=== PATIENT | female | born 1935 | race Caucasian/White ===

== ENCOUNTER 2016-09-15 09:50 | Observation (INO) | payer MEDICARE, OTHER ==
--- NOTE | 2016-09-15 10:19 | ED PDOC ---
HPI: Chest Pain Time Seen by Provider: 09/15/16 10:07 Chief Complaint (Nursing): Chest Pain History Per: Patient (Cough nonproductive x 4 days. No improvement with cough meds. Mild SOB. No fever. Has also had chest pain ? pleuritic.) Onset/Duration Of Symptoms: Days (4) Current Symptoms Are (Timing): Still Present Severity: Moderate Pain Scale Rating Of: 3 Quality: Sharp Associated Symptoms: Dyspnea Alleviating Factors: None Past Medical History Vital Signs: Last Vital Signs Temp 98.8 F 09/15/16 11:55 Pulse 109 H 09/15/16 10:00 Resp 20 09/15/16 10:00 BP 145/84 09/15/16 10:00 Pulse Ox 97 09/15/16 10:19 - Medical History PMH: CAD, HTN Denies: Chronic Kidney Disease - Surgical History Surgical History: Cholecystectomy, Coronary Stent (as per patient) - Family History Family History: States: Unknown Family Hx - Immunization History Hx Influenza Vaccination: No Hx Pneumococcal Vaccination: No - Home Medications Home Medications: Ambulatory Orders Medication Instructions Recorded Amlodipine Besylate/Benazepril 1 cap PO DAILY 09/15/16 [Lotrel 10-20 mg Capsule] Clopidogrel [Plavix] 75 mg PO DAILY 09/15/16 traMADol [Ultram] 50 mg PO BID 09/15/16 - Allergies Allergies/Adverse Reactions: Allergies Allergy/AdvReac Type Severity Reaction Status Date / Time No Known Allergies Allergy Verified 11/13/14 13:01 Review of Systems ROS Statement: Except As Marked, All Systems Reviewed And Found Negative Constitutional: Negative for: Fever Cardiovascular: Positive for: Chest Pain Respiratory: Positive for: Cough, Shortness of Breath Physical Exam - Reviewed Nursing Documentation Reviewed: Yes Vital Signs Reviewed: Yes - Physical Exam Appears: Positive for: Non-toxic, No Acute Distress Head Exam: Positive for: ATRAUMATIC, NORMAL INSPECTION, NORMOCEPHALIC Skin: Positive for: Normal Color, Warm, DRY Eye Exam: Positive for: EOMI, Normal appearance, PERRL ENT: Positive for: Normal ENT Inspection Neck: Positive for: Normal, Painless ROM Cardiovascular/Chest: Positive for: Regular Rate, Rhythm Respiratory: Positive for: Rhonchi. Negative for: Wheezing, Respiratory Distress Gastrointestinal/Abdominal: Positive for: Normal Exam, Bowel Sounds, Soft Back: Positive for: Normal Inspection Extremity: Positive for: Normal ROM Neurologic/Psych: Positive for: Alert, Oriented - Laboratory Results Result Diagrams: 09/15/16 10:25 09/15/16 10:25 - ECG O2 Sat by Pulse Oximetry: 97 Disposition - Clinical Impression Clinical Impression: Chest pain, Bronchitis - Patient ED Disposition Is Patient to be Admitted: Yes - Disposition Disposition Time: 13:50 Condition: FAIR - Pt Status Changed To: Hospital Disposition Of: Observation - POA Present On Arrival: None
[2016-09-15 10:41] LABS: BASO % 0.4 % (0.0-2.0); EOS # 0.2 K/uL (0.0-0.7); EOS % 1.7 % (0.0-4.0); HEMATOCRIT 42.1 % (34.0-47.0); LYMPH # 1.4 K/uL (1.0-4.3); LYMPH % 16.1 % (20.0-40.0); MEAN CELL VOLUME 77.6 fl (81.0-99.0); MEAN CORPUSCULAR HEMOGLOBIN 24.9 pg (27.0-31.0); MEAN CORPUSCULAR HGB CONC 32.1 g/dL (33.0-37.0); MEAN PLATELET VOLUME 10.1 fl (7.2-11.7); MONO # 0.9 K/uL (0.0-0.8); MONO % 10.5 % (0.0-10.0); NEUT # 6.3 K/uL (1.8-7.0); NEUT % 71.3 % (50.0-75.0); NRBC % 0.1 % (0.0-0.0); RED CELL DISTRIBUTION WIDTH 15.6 % (11.5-14.5); WHITE BLOOD COUNT 8.9 K/uL (4.8-10.8)
[2016-09-15 10:44] LABS: VENOUS BLOOD GAS BASE EXCESS -0.6 mmol/L (0.0-2.0); VENOUS BLOOD GAS PCO2 35 mmHg (40-60); VENOUS BLOOD PH 7.43 (7.32-7.43)
[2016-09-15] MEDS ORDERED: Sodium Chloride 0.9% 1,000 ML IV STA (10:46)
[2016-09-15] MEDS ORDERED: Vancomycin 1 g Inj ONE (10:51)
[2016-09-15] MEDS ORDERED: Piperacillin/Tazobact 3.375 gm Inj IVPB ONE (10:51)
[2016-09-15 10:53] LABS: ALKALINE PHOSPHATASE 100 U/L (38-126); ALT/SGPT 23 U/L (9-52); AST/SGOT 25 U/L (14-36); BILIRUBIN,TOTAL 0.9 mg/dl (0.2-1.3); BLOOD UREA NITROGEN 13 mg/dl (7-17); CALCIUM 10.1 mg/dL (8.4-10.2); CARBON DIOXIDE 20 mmol/L (22-30); CHLORIDE 110 mmol/L (98-107); GFR AFRICAN-AMERICAN > 60; GLUCOSE,RANDOM 133 mg/dL (65-105); POTASSIUM 3.5 MMOL/L (3.6-5.0); SODIUM 149 mmol/l (132-148); TOTAL PROTEIN 7.5 G/DL (6.3-8.2)
[2016-09-15] MEDS ORDERED: Piperacillin/Tazobact 3.375 GM in Sodium Chloride 0.9% 100 ML IVPB STA (10:53)
--- NOTE | 2016-09-15 11:25 | RAD ---
HISTORY: Cough. Portable study 10:28. COMPARISON: 10/02/2012. FINDINGS: LUNGS: No active pulmonary disease. PLEURA: No significant pleural effusion identified, no pneumothorax apparent. CARDIOVASCULAR: No radiographic findings to suggest acute or significant cardiovascular disease. OSSEOUS STRUCTURES: No significant abnormalities. VISUALIZED UPPER ABDOMEN: Normal. OTHER FINDINGS: None. IMPRESSION: No active disease. No significant interval change compared to the prior examination(s).
[2016-09-15 13:41] LABS: VENOUS BLOOD GAS BASE EXCESS 0.8 mmol/L (0.0-2.0); VENOUS BLOOD GAS PCO2 34 mmHg (40-60); VENOUS BLOOD PH 7.46 (7.32-7.43)
[2016-09-15] MEDS ORDERED: BENAZEPRIL PO SCH (14:30)
[2016-09-15] MEDS ORDERED: AMLODIPINE BESYLATE PO SCH (14:30)
--- NOTE | 2016-09-15 15:34 | CP.PCM.HP ---
History of Present Illness - History of Present Illness History of Present Illness: pt admitted for cough-non productive and pleuritic cp x 4 days. no f/c, n/v/d. 1st trop and cxr negative. pt ahs ho cad-cardio, tab daughter aware and this provider spoke w/ her Present on Admission - Present on Admission Any Indicators Present on Admission: No Review of Systems - Cardiovascular Cardiovascular: As Per HPI, Chest Pain - Respiratory Respiratory: As Per HPI, Cough, Chest Congestion Past Patient History - Infectious Disease Hx of Infectious Diseases: None - Past Medical History & Family History Past Medical History?: Yes - Past Social History Smoking Status: Never Smoked - CARDIAC Hx Cardiac Disorders: Yes (HTN, AR) - PULMONARY Hx Respiratory Disorders: No - NEUROLOGICAL Hx Neurological Disorder: No - HEENT Hx HEENT Problems: No - RENAL Hx Chronic Kidney Disease: No - ENDOCRINE/METABOLIC Hx Endocrine Disorders: No - HEMATOLOGICAL/ONCOLOGICAL Hx Blood Disorders: No - INTEGUMENTARY Hx Dermatological Problems: No - MUSCULOSKELETAL/RHEUMATOLOGICAL Hx Musculoskeletal Disorders: Yes Hx Back Pain: Yes (And left leg pain) Hx Falls: No - GASTROINTESTINAL Hx Gastrointestinal Disorders: No - GENITOURINARY/GYNECOLOGICAL Hx Genitourinary Disorders: No - PSYCHIATRIC Hx Psychophysiologic Disorder: No Hx Substance Use: No - SURGICAL HISTORY Hx Cholecystectomy: Yes Hx Coronary Stent: Yes (as per patient) - ANESTHESIA Hx Anesthesia: Yes Hx Anesthesia Reactions: No Hx Malignant Hyperthermia: No Meds Allergies/Adverse Reactions: Allergies Allergy/AdvReac Type Severity Reaction Status Date / Time No Known Allergies Allergy Verified 11/13/14 13:01 Physical Exam - Constitutional Appears: Well, Non-toxic, No Acute Distress - Head Exam Head Exam: ATRAUMATIC, NORMAL INSPECTION, NORMOCEPHALIC - Eye Exam Eye Exam: EOMI, Normal appearance, PERRL Pupil Exam: NORMAL ACCOMODATION, PERRL - ENT Exam ENT Exam: Mucous Membranes Moist, Normal Exam - Neck Exam Neck exam: Positive for: Normal Inspection - Respiratory Exam Respiratory Exam: Clear to Auscultation Bilateral, NORMAL BREATHING PATTERN - Cardiovascular Exam Cardiovascular Exam: REGULAR RHYTHM, RRR, +S1, +S2 - GI/Abdominal Exam GI & Abdominal Exam: Normal Bowel Sounds, Soft. absent: Tenderness - Extremities Exam Extremities exam: Positive for: full ROM, normal capillary refill, normal inspection, pedal pulses present - Back Exam Back exam: NORMAL INSPECTION - Neurological Exam Neurological exam: Alert, CN II-XII Intact, Normal Gait, Oriented x3, Reflexes Normal - Psychiatric Exam Psychiatric exam: Normal Affect, Normal Mood - Skin Skin Exam: Dry, Intact, Normal Color, Warm Results - Vital Signs Recent Vital Signs: Last Vital Signs Temp 98.2 F 09/15/16 14:27 Pulse 95 H 09/15/16 14:27 Resp 20 09/15/16 15:27 BP 116/70 09/15/16 14:27 Pulse Ox 99 09/15/16 14:27 - Labs Result Diagrams: 09/15/16 10:25 09/15/16 10:25 Assessment & Plan (1) Bronchitis Assessment and Plan: rocephin/zithromax phenergen (got vanco/zosyn in er) ivf Status: Acute (2) Chest pain Assessment and Plan: trops x 3 cardio tele obs Status: Acute (3) DVT prophylaxis Assessment and Plan: scd nad aehose lovenox if admitted over 24h Status: Acute Decision To Admit - Pt Status Changed To: Hospital Disposition Of: Observation - . Bed Request Type: Telemetry Admitting Physician: Moraima Meade
[2016-09-15] MEDS: Promethazine DM 6.25 mg-15 mg/5 ml Syrup PO PRN (17:09)
[2016-09-16 04:51] VITALS: PULSE 76
[2016-09-16 07:24] LABS: BASO % 0.6 % (0.0-2.0); EOS # 0.2 K/uL (0.0-0.7); EOS % 2.6 % (0.0-4.0); HEMATOCRIT 37.4 % (34.0-47.0); LYMPH # 1.6 K/uL (1.0-4.3); LYMPH % 20.4 % (20.0-40.0); MEAN CELL VOLUME 77.5 fl (81.0-99.0); MEAN CORPUSCULAR HGB CONC 32.2 g/dL (33.0-37.0); MONO % 12.4 % (0.0-10.0); NEUT # 5.1 K/uL (1.8-7.0); NRBC % 0.1 % (0.0-0.0); RED CELL DISTRIBUTION WIDTH 15.5 % (11.5-14.5)
[2016-09-16 08:01] LABS: ALKALINE PHOSPHATASE 73 U/L (38-126); ALT/SGPT 25 U/L (9-52); AST/SGOT 16 U/L (14-36); BILIRUBIN,TOTAL 0.7 mg/dl (0.2-1.3); BLOOD UREA NITROGEN 14 mg/dl (7-17); CALCIUM 9.6 mg/dL (8.4-10.2); CARBON DIOXIDE 24 mmol/L (22-30); CHLORIDE 111 mmol/L (98-107); GFR AFRICAN-AMERICAN > 60; GLUCOSE,RANDOM 89 mg/dL (65-105); POTASSIUM 3.9 MMOL/L (3.6-5.0); SODIUM 147 mmol/l (132-148); TOTAL PROTEIN 6.3 G/DL (6.3-8.2)
--- NOTE | 2016-09-16 08:17 | CP.PCM.DIS ---
Provider - Provider Date of Admission: 09/15/16 13:49 Attending physician: Moraima Meade MD Time Spent in preparation of Discharge (in minutes): 15 Diagnosis - Discharge Diagnosis (1) Bronchitis Status: Acute (2) Chest pain Status: Acute (3) DVT prophylaxis Status: Acute Hospital Course - Lab Results Lab Results: Most Recent Lab Values WBC 8.0 K/uL (4.8-10.8) 09/16/16 05:30 RBC 4.83 Mil/uL (3.80-5.20) 09/16/16 05:30 Hgb 12.1 g/dL (12.0-16.0) 09/16/16 05:30 Hct 37.4 % (34.0-47.0) 09/16/16 05:30 MCV 77.5 fl (81.0-99.0) L 09/16/16 05:30 MCH 25.0 pg (27.0-31.0) L 09/16/16 05:30 MCHC 32.2 g/dL (33.0-37.0) L 09/16/16 05:30 RDW 15.5 % (11.5-14.5) H 09/16/16 05:30 Plt Count 157 K/uL (130-400) 09/16/16 05:30 MPV 10.0 fl (7.2-11.7) 09/16/16 05:30 Neut % (Auto) 64.0 % (50.0-75.0) 09/16/16 05:30 Lymph % (Auto) 20.4 % (20.0-40.0) 09/16/16 05:30 Hancock % (Auto) 12.4 % (0.0-10.0) H 09/16/16 05:30 Eos % (Auto) 2.6 % (0.0-4.0) 09/16/16 05:30 Baso % (Auto) 0.6 % (0.0-2.0) 09/16/16 05:30 Neut # 5.1 K/uL (1.8-7.0) 09/16/16 05:30 Lymph # 1.6 K/uL (1.0-4.3) 09/16/16 05:30 Hancock # 1.0 K/uL (0.0-0.8) H 09/16/16 05:30 Eos # 0.2 K/uL (0.0-0.7) 09/16/16 05:30 Baso # 0.0 K/uL (0.0-0.2) 09/16/16 05:30 pO2 33 mm/Hg (30-55) 09/15/16 13:37 VBG pH 7.46 (7.32-7.43) H 09/15/16 13:37 VBG pCO2 34 mmHg (40-60) L 09/15/16 13:37 VBG HCO3 24.8 mmol/L 09/15/16 13:37 VBG Total CO2 25.2 mmol/L (22-28) 09/15/16 13:37 VBG O2 Sat (Calc) 69.8 % (40-65) H 09/15/16 13:37 VBG Base Excess 0.8 mmol/L (0.0-2.0) 09/15/16 13:37 VBG Potassium 3.3 mmol/L (3.6-5.2) L 09/15/16 13:37 A-a O2 Difference 74.0 mm/Hg 09/15/16 13:37 Sodium 140.0 mmol/L (132-148) 09/15/16 13:37 Chloride 114.0 mmol/L (98-107) H 09/15/16 13:37 Glucose 89 mg/dL (65-105) 09/15/16 13:37 Lactate 1.6 mmol/L (0.7-2.1) 09/15/16 13:37 FiO2 21.0 % 09/15/16 13:37 Crit Value Called To John medina 09/15/16 13:37 Crit Value Called By 15 09/15/16 13:37 Crit Value Read Back Y 09/15/16 13:37 Blood Gas Notified Time 1340 09/15/16 13:37 Sodium 147 mmol/l (132-148) 09/16/16 05:30 Potassium 3.9 MMOL/L (3.6-5.0) 09/16/16 05:30 Chloride 111 mmol/L (98-107) H 09/16/16 05:30 Carbon Dioxide 24 mmol/L (22-30) 09/16/16 05:30 Anion Gap 16 (10-20) 09/16/16 05:30 BUN 14 mg/dl (7-17) 09/16/16 05:30 Creatinine 0.7 mg/dL (0.7-1.2) 09/16/16 05:30 Est GFR ( Amer) > 60 09/16/16 05:30 Est GFR (Non-Af Amer) > 60 09/16/16 05:30 Random Glucose 89 mg/dL (65-105) 09/16/16 05:30 Calcium 9.6 mg/dL (8.4-10.2) 09/16/16 05:30 Total Bilirubin 0.7 mg/dl (0.2-1.3) 09/16/16 05:30 AST 16 U/L (14-36) 09/16/16 05:30 ALT 25 U/L (9-52) 09/16/16 05:30 Alkaline Phosphatase 73 U/L (38-126) 09/16/16 05:30 Troponin I < 0.0120 ng/mL (0.00-0.120) 09/16/16 05:30 Total Protein 6.3 G/DL (6.3-8.2) 09/16/16 05:30 Albumin 3.1 g/dL (3.5-5.0) L 09/16/16 05:30 Globulin 3.2 gm/dL (2.2-3.9) 09/16/16 05:30 Albumin/Globulin Ratio 1.0 (1.0-2.1) 09/16/16 05:30 Venous Blood Potassium 3.3 mmol/L (3.6-5.2) L 09/15/16 13:37 Discharge Exam - Head Exam Head Exam: ATRAUMATIC, NORMAL INSPECTION, NORMOCEPHALIC Discharge Plan - Discharge Medications Prescriptions: Promethazine DM [Phenergan DM Syrup] 5 ml PO Q6H PRN #250 ml PRN Reason: Cough Azithromycin [Zithromax] 250 mg PO DAILY #4 tab - Follow Up Plan Condition: FAIR Disposition: HOME/ ROUTINE Instructions: Acute Bronchitis (GEN) Additional Instructions: spoke w/ daughter. final dx-bronchitits, meds per med rec, f/u rmg 1-2 days, iv infiltration care, rted prn, will f/u in office. Referrals: Mehrdad Encinas MD [Staff Provider] - Tor Smith DNP, [employer] [Advanced Practice Nurse] -
[2016-09-16 08:40] VITALS: BP 115/72; RESP 18; TEMP 97.6; O2SAT 94
[2016-09-16] MEDS: Promethazine DM 6.25 mg-15 mg/5 ml Syrup PO PRN (09:19)
[2016-09-16] MEDS: Azithromycin 500 MG in Sodium Chloride 0.9% 250 ML IVPB SCH ×2 (09:20→13:39)
--- NOTE | 2016-09-16 09:36 | CARD ---
APPROVED REPORT EKG Measurement Heart [id number] ID [id number] <Conclusion> Sinus tachycardia Left axis deviation Right bundle branch block Minimal voltage criteria for LVH, may be normal variant Possible Lateral infarct, age undetermined Inferior infarct, age undetermined Abnormal ECG
[2016-09-16] MEDS ORDERED: Amoxicillin-Clav 875-125 mg Tab PO SCH (11:00)
--- NOTE | 2016-09-16 11:05 | CP.PCM.PN ---
Subjective - Date & Time of Evaluation Date of Evaluation: 09/16/16 Time of Evaluation: 11:04 - Subjective Subjective: pt comfortable in bed. no distress/complaints. no cp, minimal cough. no f/c, n/v /d. trops neative. cardio-lisy saw ekg and states will see pt as outpt in 1-2 days. bw wnl. vss Objective - Vital Signs/Intake and Output Vital Signs (last 24 hours): Temp Pulse Resp BP Pulse Ox 97.6 F 76 18 115/72 94 L 09/16/16 08:00 09/16/16 09:20 09/16/16 08:00 09/16/16 09:20 09/16/16 08:00 - Medications Medications: Current Medications Amlodipine Besylate (Norvasc) 10 mg PO DAILY [facility] Last Admin: 09/16/16 09:20 Dose: Not Given Amoxicillin/Clavulanate Potassium (Augmentin 875 Mg-125 Mg Tab) 1 tab PO Q12 [facility] Clopidogrel Bisulfate (Plavix) 75 mg PO DAILY [facility] Last Admin: 09/16/16 09:19 Dose: 75 mg Docusate Sodium (Colace) 100 mg PO BID [facility] Last Admin: 09/16/16 09:19 Dose: 100 mg Azithromycin 500 mg/ Sodium (Chloride) 250 mls @ 250 mls/hr IVPB DAILY [facility] Last Admin: 09/16/16 09:20 Dose: 250 mls/hr Ceftriaxone Sodium 1 gm/ (Sodium Chloride) 100 mls @ 100 mls/hr IVPB DAILY [facility] Last Admin: 09/16/16 09:21 Dose: 100 mls/hr Lisinopril (Zestril) 20 mg PO DAILY [facility] Last Admin: 09/16/16 09:19 Dose: 20 mg Promethazine HCl/Dextromethorphan (Phenergan Dm Syrup) 5 ml PO Q6 PRN PRN Reason: Cough Last Admin: 09/16/16 09:19 Dose: 5 ml Tramadol HCl (Ultram) 50 mg PO BID [facility] Last Admin: 09/16/16 09:18 Dose: 50 mg - Labs Labs: 09/16/16 05:30 09/16/16 05:30 - Constitutional Appears: Well, Non-toxic, No Acute Distress - Head Exam Head Exam: ATRAUMATIC, NORMAL INSPECTION, NORMOCEPHALIC - Eye Exam Eye Exam: EOMI, Normal appearance, PERRL Pupil Exam: NORMAL ACCOMODATION, PERRL - ENT Exam ENT Exam: Mucous Membranes Moist, Normal Exam - Neck Exam Neck Exam: Full ROM, Normal Inspection. absent: Lymphadenopathy - Respiratory Exam Respiratory Exam: Clear to Ausculation Bilateral, NORMAL BREATHING PATTERN - Cardiovascular Exam Cardiovascular Exam: REGULAR RHYTHM, +S1, +S2. absent: Murmur - GI/Abdominal Exam GI & Abdominal Exam: Soft, Normal Bowel Sounds. absent: Tenderness - Extremities Exam Extremities Exam: Full ROM, Normal Capillary Refill, Normal Inspection. absent : Joint Swelling, Pedal Edema - Back Exam Back Exam: NORMAL INSPECTION - Neurological Exam Neurological Exam: Alert, Awake, CN II-XII Intact, Normal Gait, Oriented x3 - Psychiatric Exam Psychiatric exam: Normal Affect, Normal Mood - Skin Skin Exam: Dry, Intact, Normal Color, Warm Assessment and Plan (1) Bronchitis Assessment & Plan: rocpehin, zithromax phenergen prn Status: Acute (2) Chest pain Assessment & Plan: tropsnegative, ekg wnl 1st degree av block noted. cardio to f/u as ouptt Status: Acute (3) DVT prophylaxis Assessment & Plan: scd na e hose, abmulation Status: Acute
== END 2016-09-16 13:30 | disposition home or self-care (01) ==
LOC: H.ER 09:50 → H.ERHOLD 13:49 → H.TEL 15:16
PROVIDERS: ADMIT Family Medicine; ATTEND Family Medicine
DX: I25.10 Atherosclerotic heart disease of native coronary artery without angina pectoris (principal); J40 Bronchitis, not specified as acute or chronic
CPT/HCPCS: 36415; 71010; 80053; 82803; 84484; 85025; 87040; 93005; 96365; 96366; 99285; G0378; J2543; J7040

== ENCOUNTER 2018-05-17 10:27 | Emergency (ER) | payer MEDICARE, OTHER ==
[2018-05-17 10:55] VITALS: O2SAT 97
--- NOTE | 2018-05-17 11:06 | ED PDOC ---
HPI: Abdomen Time Seen by Provider: 05/17/18 10:41 Chief Complaint (Nursing): Abdominal Pain History Per: Patient Onset/Duration Of Symptoms: Days (2) Current Symptoms Are (Timing): Still Present Severity: Mild Pain Scale Rating Of: 2 Location Of Pain/Discomfort: RLQ Quality Of Discomfort: Unable To Describe Associated Symptoms: Constipation. denies: Fever, Nausea, Vomiting, Diarrhea, Urinary Symptoms Exacerbating Factors: None Alleviating Factors: None Additional Complaint(s): RLQ abd pain x 2 days. Denies NVD. Denies fever. Denies urinary sxs Past Medical History Vital Signs: Last Vital Signs Temp 97 F L 05/17/18 10:54 Pulse 104 H 05/17/18 10:54 Resp BP 136/85 05/17/18 10:54 Pulse Ox 97 05/17/18 10:54 - Medical History PMH: CAD, HTN, Kidney Stones Denies: Chronic Kidney Disease - Surgical History Surgical History: Cholecystectomy, Coronary Stent (as per patient) - Family History Family History: States: Unknown Family Hx - Immunization History Hx Influenza Vaccination: No Hx Pneumococcal Vaccination: No - Home Medications Home Medications: Ambulatory Orders Medication Instructions Recorded Amlodipine Besylate/Benazepril 1 cap PO DAILY 09/15/16 [Lotrel 10-20 mg Capsule] Clopidogrel [Plavix] 75 mg PO DAILY 09/15/16 traMADol [Ultram] 50 mg PO BID 09/15/16 Azithromycin [Zithromax] 250 mg PO DAILY #4 tab 09/16/16 Promethazine DM [Phenergan DM 5 ml PO Q6H PRN #250 ml 09/16/16 Syrup] Dicyclomine [Dicyclomine HCl] 10 mg PO Q8 #10 cap 05/17/18 Polyethylene Glycol 3350 [Miralax] 17 gm PO DAILY #100 ml 05/17/18 - Allergies Allergies/Adverse Reactions: Allergies Allergy/AdvReac Type Severity Reaction Status Date / Time No Known Allergies Allergy Verified 05/17/18 10:58 Review of Systems ROS Statement: Except As Marked, All Systems Reviewed And Found Negative Gastrointestinal: Positive for: Abdominal Pain Physical Exam - Reviewed Nursing Documentation Reviewed: Yes Vital Signs Reviewed: Yes - Physical Exam Appears: Positive for: Non-toxic, No Acute Distress Head Exam: Positive for: ATRAUMATIC, NORMAL INSPECTION, NORMOCEPHALIC Skin: Positive for: Normal Color, Warm, DRY Eye Exam: Positive for: EOMI, Normal appearance, PERRL ENT: Positive for: Normal ENT Inspection Neck: Positive for: Normal, Painless ROM Cardiovascular/Chest: Positive for: Regular Rate, Rhythm Respiratory: Positive for: CNT, Normal Breath Sounds Gastrointestinal/Abdominal: Positive for: Soft, Tenderness (RLQ) Back: Positive for: Normal Inspection Extremity: Positive for: Normal ROM Neurologic/Psych: Positive for: Alert, Oriented - Laboratory Results Result Diagrams: 05/17/18 11:27 05/17/18 11:27 - ECG O2 Sat by Pulse Oximetry: 97 Disposition - Clinical Impression Clinical Impression: Constipation, Abdominal discomfort - Patient ED Disposition Is Patient to be Admitted: No Counseled Patient/Family Regarding: Studies Performed, Diagnosis, Need For Followup, Rx Given - Disposition Referrals: Miky Warner MD [Staff Provider] - Disposition: Routine/Home Disposition Time: 13:28 Condition: FAIR Prescriptions: Dicyclomine [Dicyclomine HCl] 10 mg PO Q8 #10 cap Polyethylene Glycol 3350 [Miralax] 17 gm PO DAILY #100 ml Instructions: Constipation in Adults Forms: [employer] ([place])
[2018-05-17 11:34] LABS: BASO # 0.1 K/uL (0.0-0.2); EOS % 0.6 % (0.0-4.0); HEMOGLOBIN 14.2 g/dL (12.0-16.0); LYMPH # 1.3 K/uL (1.0-4.3); MEAN CORPUSCULAR HEMOGLOBIN 24.9 pg (27.0-31.0); MEAN CORPUSCULAR HGB CONC 31.9 g/dL (33.0-37.0); MEAN PLATELET VOLUME 10.6 fl (7.2-11.7); MONO # 0.7 K/uL (0.0-0.8); MONO % 7.7 % (0.0-10.0); NEUT # 6.8 K/uL (1.8-7.0); NEUT % 75.7 % (50.0-75.0); RBC 5.69 Mil/uL (3.80-5.20); RED CELL DISTRIBUTION WIDTH 15.8 % (11.5-14.5); WHITE BLOOD COUNT 8.9 K/uL (4.8-10.8)
[2018-05-17 11:59] LABS: ALB/GLOB RATIO 1.1 (1.0-2.1); ALBUMIN 3.7 g/dL (3.5-5.0); ALT/SGPT 18 U/L (9-52); AST/SGOT 31 U/L (14-36); BLOOD UREA NITROGEN 18 mg/dl (7-17); CALCIUM 10.1 mg/dL (8.4-10.2); GFR NON-AFRICAN AMERICAN > 60
[2018-05-17 12:06] LABS: VENOUS BLOOD GAS BASE EXCESS 3.3 mmol/L (0.0-2.0); VENOUS BLOOD GAS PCO2 41 mmHg (40-60); VENOUS BLOOD GAS PO2 40 mm/Hg (30-55); VENOUS BLOOD PH 7.44 (7.32-7.43)
[2018-05-17 12:14] LABS: SQUAMOUS EPITHIAL 1 /hpf (0-5); URINE BACTERIA RARE (<OCC); URINE BILIRUBIN NEGATIVE (NEGATIVE); URINE BLOOD NEGATIVE (NEGATIVE); URINE CLARITY CLEAR (Clear); URINE COLOR YELLOW (YELLOW); URINE GLUCOSE (UA) NEG (NEGATIVE); URINE LEUKOCYTE ESTERASE NEG Leu/uL (Negative); URINE PROTEIN NEGATIVE (NEGATIVE); URINE UROBILINOGEN 0.2-1.0 mg/dL (0.2-1.0)
[2018-05-17] MEDS ORDERED: Potassium Chloride 20 mEq ER Tab PO ONE ×2 (12:35→13:55)
--- NOTE | 2018-05-17 13:13 | CT ---
Date of service: 05/17/2018 PROCEDURE: CT Abdomen and Pelvis without intravenous contrast HISTORY: r/o kidney stone COMPARISON: Abdomen pelvis CT without contrast 04/10/2016. TECHNIQUE: Helical CT of the abdomen and pelvis was performed without oral or intravenous contrast as per referring physician request. Coronal and sagittal reformats were generated. Contrast dose: None Radiation dose: Total exam DLP = 333.56 mGy-cm. This CT exam was performed using one or more of the following dose reduction techniques: Automated exposure control, adjustment of the mA and/or kV according to patient size, and/or use of iterative reconstruction technique. FINDINGS: LOWER THORAX: Limited anterior pericardial effusion or thickening identified. Limited bilateral basilar dependent atelectasis evident. LIVER: Small lucency is again seen at the watershed portion of the central liver unchanged in appearance in this unenhanced exam. GALLBLADDER AND BILE DUCTS: Cholecystectomy. Stable prominence of the intrahepatic bile ducts reiterated including CBD measuring 10 mm. No radiodense choledocholithiasis. PANCREAS: Nonfocal atrophic pancreas reiterated. SPLEEN: Unremarkable. ADRENALS: Mild bilateral adrenal hyperplasia reiterated. KIDNEYS AND URETERS: No obstructive uropathy bilaterally. Bilateral renal cysts are again identified including upper pole left renal cyst 4.5 x 4.6 cm and upper pole right renal cyst 4.4 x 4.3 cm. Scattered parenchymal or intrarenal calcifications are reiterated. Tiny lucencies at the lower pole right and midpole left kidney too small to characterize with small cyst unchanged at the lower pole left kidney. Bilateral ureters appear unremarkable. VASCULATURE: Nonaneurysmal abdominal aortic calcific atherosclerotic changes are identified. BOWEL: Retained fecal material scattered throughout the proximal to mid colon with the distal colon largely decompressed. No bowel obstruction or mesenteric edema appreciated. Evaluation of the gastrointestinal tract is limited due to the lack of oral contrast administration. APPENDIX: No CT evidence of appendicitis. PERITONEUM: Unremarkable. No free fluid. No free air. LYMPH NODES: Unremarkable. No enlarged lymph nodes. BLADDER: Unremarkable. REPRODUCTIVE: Prior hysterectomy evident once again. BONES: Stable L3-4 spondylolisthesis. Prior right proximal femoral ORIF reiterated. OTHER FINDINGS: None. IMPRESSION: 1. No definite acute abdominal or pelvic findings. 2. Prior cholecystectomy with stable dilatation of the extrahepatic biliary tree. No radiodense choledocholithiasis. 3. Stable bilateral renal cyst. No obstructive uropathy bilaterally. Intrarenal calculi versus parenchymal calcification reiterated. 4. No bowel obstruction, measure edema, ascites or free intra peritoneal gas collection appreciated once again.
[2018-05-17 13:56] VITALS: BP 132/86; PULSE 88; RESP 16; TEMP 97.7
== END 2018-05-17 13:56 | disposition home or self-care (01) ==
LOC: H.ER 10:27
DX: K59.00 Constipation, unspecified (principal); R10.31 Right lower quadrant pain; I10 Essential (primary) hypertension; Z87.442 Personal history of urinary calculi; Z95.5 Presence of coronary angioplasty implant and graft; Z90.49 Acquired absence of other specified parts of digestive tract; Z79.899 Other long term (current) drug therapy